=== PATIENT | female | born 1995 | race Caucasian/White ===

== ENCOUNTER 2020-02-23 21:54 | Emergency (ER) | payer OTHER ==
[~2020-02-23] VITALS: Ht 165 cm; Wt 68.0 kg
[2020-02-23 23:01] LABS: BASOPHILS # (AUTO) 0.1 10^3/uL (0.0-0.1); BASOPHILS % (AUTO) 1 % (0-10); EOSINOPHILS # (AUTO) 0.2 10^3/uL (0.0-0.3); EOSINOPHILS % (AUTO) 1 % (0-10); HEMATOCRIT 44 % (35-52); HEMOGLOBIN 15.3 g/dL (11.5-16.0); LYMPHOCYTES # (AUTO) 5.3 10^3/uL (1.0-4.0); LYMPHOCYTES % (AUTO) 36 % (12-44); MEAN CORPUSCULAR HEMOGLOBIN 31 pg (25-34); MEAN CORPUSCULAR HGB CONC 35 g/dL (32-36); MEAN CORPUSCULAR VOLUME 88 fL (80-99); MEAN PLATELET VOLUME 12.5 fL (9.0-12.2); MONOCYTES # (AUTO) 0.9 10^3/uL (0.0-1.0); MONOCYTES % (AUTO) 6 % (0-12); NEUTROPHILS # (AUTO) 8.5 10^3/uL (1.8-7.8); NEUTROPHILS % (AUTO) 57 % (42-75); PLATELET COUNT 297 10^3/uL (130-400)
[2020-02-23 23:02] LABS: BILIRUBIN,URINE NEGATIVE (NEGATIVE); CLARITY,URINE CLEAR; COLOR,URINE YELLOW; GLUCOSE, URINE (UA) NEGATIVE (NEGATIVE); KETONES,URINE 1+ (NEGATIVE); LEUKOCYTE ESTERASE ,URINE TRACE (NEGATIVE); NITRITE,URINE NEGATIVE (NEGATIVE); PROTEIN,URINE NEGATIVE (NEGATIVE)
[2020-02-23 23:13] LABS: ALBUMIN 4.7 GM/DL (3.2-4.5); CHLORIDE 102 MMOL/L (98-107); POTASSIUM 3.6 MMOL/L (3.6-5.0); SODIUM 136 MMOL/L (135-145)
[2020-02-23 23:14] LABS: AMYLASE 54 U/L (25-125); CALCIUM 9.4 MG/DL (8.5-10.1)
[2020-02-23 23:15] LABS: GLUCOSE 100 MG/DL (70-105); TOTAL PROTEIN 8.2 GM/DL (6.4-8.2)
[2020-02-23 23:16] LABS: CARBON DIOXIDE 18 MMOL/L (21-32)
[2020-02-23 23:17] LABS: BILIRUBIN,TOTAL 0.3 MG/DL (0.1-1.0)
[2020-02-23 23:19] LABS: ALKALINE PHOSPHATASE 67 U/L (40-136); GFR ESTIMATED > 60
[2020-02-23 23:20] LABS: BUN/CREATININE RATIO 11
[2020-02-23 23:22] LABS: ALANINE AMINOTRANSFERASE 13 U/L (0-55); LIPASE 19 U/L (8-78)
[2020-02-23 23:25] LABS: AMPHETAMINE SCREEN, URINE NEGATIVE (NEGATIVE); BARBITURATE SCREEN URINE NEGATIVE (NEGATIVE); BENZODIAZEPINES SCREEN URINE NEGATIVE (NEGATIVE); CANNABINOID SCREEN, URINE NEGATIVE (NEGATIVE); COCAINE SCREEN URINE NEGATIVE (NEGATIVE); METHADONE STAT NEGATIVE (NEGATIVE); METHAMPHETAMINE SCREEN URINE S NEGATIVE (NEGATIVE); OPIATE SCREEN URINE NEGATIVE (NEGATIVE); OXYCODONE STAT NEGATIVE (NEGATIVE); PROPOXYPHENE STAT NEGATIVE (NEGATIVE); TRICYCLIC ANTIDEPRESSANTS SCRE NEGATIVE (NEGATIVE)
[2020-02-23 23:27] LABS: BACTERIA,URINE TRACE /HPF; RBC,URINE >100 /HPF; WBC,URINE RARE /HPF
[2020-02-23 23:33] LABS: BAND NEUTROPHILS 3 %; NEUTROPHILS % (MANUAL) 56 %
[2020-02-23 23:34] LABS: EOSINOPHILS % (MANUAL) 1 %; LYMPHOCYTES % (MANUAL) 35 %; MONOCYTES % (MANUAL) 5 %; RBC MORPH NORMAL
[2020-02-23] MEDS ORDERED: KETOROLAC 30 MG/ML VIAL IVP ONE (23:45)
[2020-02-24] MEDS ORDERED: RX-NITROFURANTOIN 100 MG (MACROBID) CAP PPK#2 PO STA (00:18)
[2020-02-24] MEDS ORDERED: RX-ONDANSETRON 4 MG ODT (ZOFRAN) PPK #4 PO STA (00:18)
[2020-02-24] MEDS ORDERED: TMSL.4C PO (00:23)
[2020-02-24] MEDS ORDERED: ACHD5005 PO (00:23)
[2020-02-24] MEDS ORDERED: ONDA4TAB11 PO (00:23)
[2020-02-24] MEDS ORDERED: NITR-65 PO (00:23)
[2020-02-24] MEDS ORDERED: KETO10TA PO (00:23)
--- NOTE | 2020-02-24 00:23 | ED Abdominal Pain ---
General Chief Complaint: Back Problems Stated Complaint: SOB,PAIN IN CHEST, BACK, ABD,ASTHMA Nursing Triage Note: Pt brought to ER room 9 via wheelchair. Pt complains of severe right flank pain that began 1 week ago but worsened yesterday. Pt also states she is nauseated due to pain. She has had pain with urination. Pt states movement makes the pain worse. Patient is hyperventilating and tearful in room. Pt states she took 1 Amoxicillin tablet 1 hour ago to see if it would help. Sepsis Screen: Possible Severe Sepsis Risk Source of Information: Patient History of Present Illness Date Seen by Provider: Feb 23, 2020 Time Seen by Provider: 22:15 Initial Comments PT ARRIVES VIA POV FROM HOME C/O SEVERE RIGHT FLANK PAIN PAIN BEGAN A WEEK AGO, THEN GOT A LITTLE BETTER, THEN BECAME SEVERE TONIGHT HAS NOT TAKEN ANYTHING FOR PAIN --TOOK 1 AMOXICILLIN TABLET 1 HOUR AGO TO SEE IF IT WOULD HELP C/O NAUSEA, NO VOMITING --STATES IS DUE TO PAIN C/O PAIN ON URINATION X 1 WEEK PAIN IS WORSE WITH MOVEMENT NO FEVER/SWEATS/CHILLS NO HISTORY OF SIMILAR LMP 01/27/20, NORMAL, NO CONTROL PCP: NONE--JUST MOVED HERE 3 MONTHS AGO FROM [place], [place] Allergies and Home Medications Allergies Coded Allergies: No Known Drug Allergies (Unverified , 02/23/20) Home Medications Hydrocodone/Acetaminophen 1 Each Tablet, 1 EACH PO Q4-6 HOURS PRN for PAIN Prescribed by: NILS MAGANA on 02/24/2022 Ketorolac Tromethamine 10 Mg Tablet, 10 MG PO Q6H Prescribed by: NILS MAGANA on 02/24/2022 Nitrofurantoin Monohyd/M-Cryst 100 Mg Capsule, 1 TAB PO BID Prescribed by: NILS MAGANA on 02/24/2022 Ondansetron 4 Mg Tab.rapdis, 4 MG PO Q4H Prescribed by: NILS MAGANA on 02/24/2022 Tamsulosin HCl 0.4 Mg Cap, 0.4 MG PO DAILY Prescribed by: NILS MAGANA on 02/24/2022 Patient Home Medication List Home Medication List Reviewed: Yes Review of Systems Review of Systems Constitutional: no symptoms reported; No chills, No diaphoresis, No fever EENTM: No Symptoms Reported Respiratory: No Symptoms Reported; Denies Cough, Denies Shortness of Air Cardiovascular: No Symptoms Reported; Denies Chest Pain Gastrointestinal: See HPI; Denies Constipated, Denies Diarrhea; Nausea; Denies Vomiting Genitourinary: See HPI, Burning; Denies Discharge; Flank Pain, Pain Musculoskeletal: see HPI, back pain Skin: no symptoms reported Psychiatric/Neurological: No Symptoms Reported Endocrine: No Symptoms Reported Hematologic/Lymphatic: No Symptoms Reported Past Pvbjowy-Yxhzym-Flnjhi Hx Past Med/Social Hx: Reviewed and Corrections made Patient Social History Alcohol Use: Denies Use Drug of Choice: DENIES DRUG USE Smoking Status: Current Everyday Smoker (12-1 PPD) Type Used: Cigarettes 2nd Hand Smoke Exposure: Yes Recent Infectious Disease Expo: No Recent Hopitalizations: No Seasonal Allergies Seasonal Allergies: Yes Past Medical History Surgeries: No Respiratory: Yes Asthma Cardiac: No Neurological: No : No Last Menstrual Period: Jan 27, 2020 Reproductive Disorders: No Genitourinary: No Gastrointestinal: No Musculoskeletal: No Endocrine: No HEENT: No Cancer: No Psychosocial: No Integumentary: No Blood Disorders: No Physical Exam Vital Signs Vital Signs - First Documented 02/23/20 22:15 Temp 36.9 Pulse 92 Resp 26 B/P (MAP) 159/105 (123) Pulse Ox 100 O2 Delivery Room Air Capillary Refill : Less Than 3 Seconds Height/Weight/BMI Height: '" Weight: lbs. oz. kg; 24.00 BMI Method: General Appearance: other (VERY DRAMATIC, MOANING LOUDLY, HOLDING RIGHT FLANK. FULL HEAVY MAKEUP) Respiratory: normal breath sounds, no respiratory distress, no accessory muscle use Cardiovascular: regular rate, rhythm, no murmur Gastrointestinal: soft; No distended; tenderness (RIGHT FLANK); No hernia, No mass Extremities: normal inspection Back: CVA tenderness (R) Neurologic/Psychiatric: no motor/sensory deficits, alert, oriented x 3 Skin: normal color (PT IS ), warm/dry; No rash Progress/Results/Core Measures Results/Orders Lab Results Laboratory Tests Test 02/23/20 22:33 02/23/20 22:43 Range/Units White Blood Count 15.0 H 4.3-11.0 10^3/uL Red Blood Count 5.02 3.80-5.11 10^6/uL Hemoglobin 15.3 11.5-16.0 g/dL Hematocrit 44 35-52 % Mean Corpuscular Volume 88 80-99 fL Mean Corpuscular Hemoglobin 31 25-34 pg Mean Corpuscular Hemoglobin Concent 35 32-36 g/dL Red Cell Distribution Width 12.9 10.0-14.5 % Platelet Count 297 130-400 10^3/uL Mean Platelet Volume 12.5 H 9.0-12.2 fL Immature Granulocyte % (Auto) 0 % Neutrophils (%) (Auto) 57 42-75 % Lymphocytes (%) (Auto) 36 12-44 % Monocytes (%) (Auto) 6 0-12 % Eosinophils (%) (Auto) 1 0-10 % Basophils (%) (Auto) 1 0-10 % Neutrophils # (Auto) 8.5 H 1.8-7.8 10^3/uL Lymphocytes # (Auto) 5.3 H 1.0-4.0 10^3/uL Monocytes # (Auto) 0.9 0.0-1.0 10^3/uL Eosinophils # (Auto) 0.2 0.0-0.3 10^3/uL Basophils # (Auto) 0.1 0.0-0.1 10^3/uL Immature Granulocyte # (Auto) 0.1 0.0-0.1 10^3/uL Neutrophils % (Manual) 56 % Lymphocytes % (Manual) 35 % Monocytes % (Manual) 5 % Eosinophils % (Manual) 1 % Band Neutrophils 3 % Blood Morphology Comment NORMAL Sodium Level 136 135-145 MMOL/L Potassium Level 3.6 3.6-5.0 MMOL/L Chloride Level 102 98-107 MMOL/L Carbon Dioxide Level 18 L 21-32 MMOL/L Anion Gap 16 H 5-14 MMOL/L Blood Urea Nitrogen 9 7-18 MG/DL Creatinine 0.80 0.60-1.30 MG/DL Estimat Glomerular Filtration Rate > 60 BUN/Creatinine Ratio 11 Glucose Level 100 70-105 MG/DL Calcium Level 9.4 8.5-10.1 MG/DL Corrected Calcium 8.5-10.1 MG/DL Total Bilirubin 0.3 0.1-1.0 MG/DL Aspartate Amino Transf (AST/SGOT) 16 5-34 U/L Alanine Aminotransferase (ALT/SGPT) 13 0-55 U/L Alkaline Phosphatase 67 40-136 U/L Total Protein 8.2 6.4-8.2 GM/DL Albumin 4.7 H 3.2-4.5 GM/DL Amylase Level 54 25-125 U/L Lipase 19 8-78 U/L Serum Test, Qualitative NEGATIVE NEGATIVE Urine Opiates Screen NEGATIVE NEGATIVE Urine Oxycodone Screen NEGATIVE NEGATIVE Urine Methadone Screen NEGATIVE NEGATIVE Urine Propoxyphene Screen NEGATIVE NEGATIVE Urine Barbiturates Screen NEGATIVE NEGATIVE Ur Tricyclic Antidepressants Screen NEGATIVE NEGATIVE Urine Phencyclidine Screen NEGATIVE NEGATIVE Urine Amphetamines Screen NEGATIVE NEGATIVE Urine Methamphetamines Screen NEGATIVE NEGATIVE Urine Benzodiazepines Screen NEGATIVE NEGATIVE Urine Cocaine Screen NEGATIVE NEGATIVE Urine Cannabinoids Screen NEGATIVE NEGATIVE Urine Color YELLOW Urine Clarity CLEAR Urine pH 7.0 5-9 Urine Specific [place] 1.010 L 1.016-1.022 Urine Protein NEGATIVE NEGATIVE Urine Glucose (UA) NEGATIVE NEGATIVE Urine Ketones 1+ H NEGATIVE Urine Nitrite NEGATIVE NEGATIVE Urine Bilirubin NEGATIVE NEGATIVE Urine Urobilinogen 0.2 < = 1.0 MG/DL Urine Leukocyte Esterase TRACE H NEGATIVE Urine RBC (Auto) 3+ H NEGATIVE Urine RBC >100 H /HPF Urine WBC RARE /HPF Urine Squamous Epithelial Cells 2-5 /HPF Urine Crystals NONE /LPF Urine Bacteria TRACE /HPF Urine Casts NONE /LPF Urine Mucus NEGATIVE /LPF Urine Culture Indicated NO My Orders Orders - NILS MAGANA DO Chest 1 View, Ap/Pa Only (02/23/20 22:14) Urine Bedside (02/23/20 22:44) Ct Abd/Pelvis Wo(Kidney Stone) (02/23/20 22:44) Abdomen/Kub 1view (02/23/20 22:44) Amylase (02/23/20 22:44) Cbc With Automated Diff (02/23/20 22:44) Comprehensive Metabolic Panel (02/23/20 22:44) Drug Screen Stat (Urine) (02/23/20 22:44) Lipase (02/23/20 22:44) Ua Culture If Indicated (02/23/20 22:44) Manual Differential (02/23/20 22:33) Hcg,Qualitative Serum (02/23/20 23:07) Ketorolac Injection (Toradol Injection) (02/23/20 23:45) Tamsulosin Capsule (Flomax Capsule) (02/24/20 00:30) Rx-Hydrocodone/Apap 5-325 Mg (Rx-Vicodin (02/24/20 00:30) Rx-Nitrofurantoin [place] (Rx-Macrobid) (02/24/20 00:18) Rx-Ondansetron Po (Rx-Zofran Po) (02/24/20 00:18) Medications Given in ED Current Medications Medications Dose Ordered Sig/Kalie Route Start Time Stop Time Status Last Admin Dose Admin Acetaminophen/ Hydrocodone Bitart 1 ea Q4H PRN PO 02/24/20 00:30 02/24/20 00:47 DC 02/24/20 00:34 1 EA Ketorolac Tromethamine 30 mg ONCE ONCE IVP 02/23/20 23:45 02/23/20 23:46 DC 02/23/20 23:54 30 MG Vital Signs/I&O 02/23/20 02/24/20 22:15 00:39 Temp 36.9 Pulse 92 81 Resp 26 16 B/P (MAP) 159/105 (123) 124/94 Pulse Ox 100 100 O2 Delivery Room Air Room Air Blood Pressure Mean: 123 Progress Progress Note : Progress Note GIVEN TORADOL WITH COMPLETE RELIEF OF PAIN Diagnostic Imaging Comments KUB--NO ACUTE PROCESS, PENDING RADIOLOGIST REVIEW CT ABDOMEN/PELVIS-1-2 MM STONE VS PHLEBOLITH IN REGION OF DISTAL RIGHT URETER JUST ABOVE UVJ, WITH MINIMAL RIGHT HYDRONEPHROSIS--PER [facility] VIA FAX AT 0001 Reviewed: Reviewed by Me Departure Impression Primary Impression: Right ureteral calculus Disposition: HOME, SELF-CARE Condition: Improved Departure-Patient Inst. Referrals: MAGNO MONIQUE MD Patient Instructions: How to Strain Your Urine, Kidney Stones (DC) Add. Discharge Instructions: LOTS OF CLEAR LIQUIDS--WATER, BROTH, JELLO, GATORADE, CLEAR JUICES STRAIN ALL URINE--RETURN ANY STONES TO DR. MONIQUE'S OFFICE FOLLOW UP WITH DR. MONIQUE THIS WEEK FOR FURTHER CARE--CALL IN THE MORNING TO SCHEDULE FOLLOW UP APPOINTMENT All discharge instructions reviewed with patient and/or family. Voiced understanding. Scripts Hydrocodone/Acetaminophen (Hydrocodone-Acetamin 5-325 mg) 1 Each Tablet 1 EACH PO Q4-6 HOURS PRN for PAIN, #20 TAB Prov: IZZYNILS K DO 02/24/20 Tamsulosin HCl (Flomax) 0.4 Mg Cap 0.4 MG PO DAILY, #10 CAP Prov: IZZY,NILS K DO 02/24/20 Nitrofurantoin Monohyd/M-Cryst (Macrobid 100 mg Capsule) 100 Mg Capsule 1 TAB PO BID, #20 CAP Prov: NILS MAGANA DO 02/24/20 Ketorolac Tromethamine (Ketorolac Tromethamine) 10 Mg Tablet 10 MG PO Q6H for Pain, #15 TAB Prov: NILS MAGANA DO 02/24/20 Ondansetron (Ondansetron Odt) 4 Mg Tab.rapdis 4 MG PO Q4H for Nausea/Vomiting, #10 TAB Prov: NILS MAGANA DO 02/24/20 NILS MAGANA DO Feb 24, 2020 00:23
[2020-02-24] MEDS ORDERED: RX-HYDROCODONE/APAP 5/325 MG #4 TAB PK PO PRN (00:30)
[2020-02-24] MEDS ORDERED: TAMSULOSIN 0.4 MG (FLOMAX) CAP PO SCH (00:30)
[2020-02-24 00:39] VITALS: BP 124/94
--- NOTE | 2020-02-24 06:35 | Diagnostic Imaging Report ---
PATIENT HISTORY: CP, SOB. TECHNIQUE: Single frontal view of the chest. COMPARISON: None FINDINGS: The lung volumes are normal. No focal consolidation is seen. No large pleural effusion or pneumothorax is seen. The cardiomediastinal silhouette is normal in size and contour. No acute osseous abnormality is seen. IMPRESSION: No acute pulmonary abnormality seen. Dictated by: Dictated on workstation # [id number]
--- NOTE | 2020-02-24 06:40 | Diagnostic Imaging Report ---
HISTORY: Right flank pain. TECHNIQUE: Frontal view of the abdomen. COMPARISON: None FINDINGS: The bowel loops are nondistended without obstruction. No large collection of free air is seen. No extraosseous calcifications are appreciated. IMPRESSION: 1. No bowel obstruction or large collection of free air. Dictated by: Dictated on workstation # [id number]
--- NOTE | 2020-02-24 06:57 | Diagnostic Imaging Report ---
PROCEDURE: CT urinary tract, rule out kidney stone. TECHNIQUE: Multiple contiguous axial images were obtained through the abdomen and pelvis without the use of intravenous contrast. Auto Exposure Controls were utilized during the CT exam to meet ALARA standards for radiation dose reduction. INDICATION: Right flank pain COMPARISON: None FINDINGS: The lung bases are clear. The heart is normal in size. The liver demonstrates no focal lesions. The spleen appears normal. The pancreas is normal. The adrenal glands are normal. There is motion artifact throughout the exam. There is mild right hydronephrosis. There appears to be mild right hydroureter and periureteral fat stranding as well. There is a tiny 2 mm hyperdensity in the region of the distal ureter near the ureterovesicular junction (image 101 series 2), which could represent an obstructing stone or possibly phlebolith. The appendix is not seen, but no secondary findings of appendicitis are identified. No free fluid or free air is seen. The bowel loops are nondistended without obstruction. No acute osseous abnormality is seen. IMPRESSION: 1. Mild right hydroureteronephrosis. 2 mm hyperdensity near the ureterovesicular junction may represent an obstructing stone, however this is suboptimally evaluated due to motion. Dictated by: Dictated on workstation # [id number]
== END 2020-02-24 00:47 | disposition home or self-care (01) ==
LOC: ER 22:01
DX: N13.2 Hydronephrosis with renal and ureteral calculous obstruction (principal); F17.210 Nicotine dependence, cigarettes, uncomplicated
CPT/HCPCS: 36415; 71045; 74018; 74176; 80053; 80306; 81000; 82150; 83690; 84703; 85007; 85027